=== PATIENT | male | born 1980 | race Hispanic/Latino ===

== ENCOUNTER 2025-05-04 17:11 | Emergency (ER) | payer BC ==
[2025-05-04] MEDS ORDERED: HYDROCODONE/APAP 5/325 MG TAB ONE (17:44)
[2025-05-04 19:23] LABS: Urine Microscopic Reflex YN NO UMIC
--- NOTE | 2025-05-04 20:43 | RAD REPORT ---
EXAMINATION: ULTRASOUND DUPLEX OF SCROTUM AND TESTICLES CLINICAL INDICATION: Male, 44 years, right testicle swelling and pain TECHNIQUE: Duplex scan of the scrotal contents was performed including real-time color and spectral D oppler ultrasonography with arterial inflow and venous outflow. COMPARISON: No prior exam. FINDINGS: RIGHT TESTICLE AND EPIDIDYMIS: The right testicle is normal in size, measuring 4.2 x 2.4 x 4.0 cm. Normal, homogeneous echotexture with no focal lesion seen. Multiple scattered microliths. The right epididymis is normal. Color Doppler flow in the right testicle shows mild relative hyperemia throughout the right testicula r parenchyma and epididymis. Normal arterial and venous spectral Doppler waveforms are identified. Small hydrocele. No varicocele. LEFT TESTICLE AND EPIDIDYMIS: The left testicle is normal in size, measuring 3.9 x 2.2 x 3.8 cm. Normal, homogeneous echotexture with no focal lesion seen. Multiple scattered microliths. The left epididymis is normal. Color Doppler flow in the left testicle is normal. Normal arterial and venous spectral Doppler waveforms are identified. No hydrocele. No varicocele. INGUINAL CANAL: No hernia. ADDITIONAL FINDINGS: None. IMPRESSION: Mild hyperemia throughout the right testicular parenchyma and epididymis, may suggest mild epididymoo rchitis. Small right hydrocele.
--- NOTE | 2025-05-04 21:15 | ER ---
Nurse's Notes [facility] Name: Pierce Bella Jr Age: 44 yrs Sex: Male : 1980 Arrival Date: 05/04/2025 Time: 17:11 Bed IW10 Private MD: Diagnosis: Epididymo-orchitis;Acute Right epididymoorchitis Presentation: 05/04 17:27 Chief complaint: Patient states: R TESTICLE PAIN AND SWELLING SINCE LUNCH, DENIES bp TRAUMA. Coronavirus screen: At this time, the client does not indicate any symptoms associated with coronavirus-19. Ebola Screen: No symptoms or risks identified at this time. Initial Sepsis Screen: Does the patient meet any 2 criteria? No. Patient's initial sepsis screen is negative. Does the patient have a suspected source of infection? No. Patient's initial sepsis screen is negative. Risk Assessment: Do you want to hurt yourself or someone else? Patient reports no desire to harm self or others. Onset of symptoms was May 04, 2025 at 13:00. 17:27 Method Of Arrival: Ambulatory bp 17:27 Acuity: [place] 3 bp Triage Assessment: 17:28 General: Appears in no apparent distress. uncomfortable, Behavior is calm, cooperative, bp appropriate for age. Pain: Complains of pain in groin. EENT: No deficits noted. Neuro: No deficits noted. Cardiovascular: No deficits noted. Respiratory: No deficits noted. GI: No signs and/or symptoms were reported involving the gastrointestinal system. : Reports pain testicle. Derm: No deficits noted. Musculoskeletal: No deficits noted. Historical: - Allergies: 17:28 No Known Allergies; bp - PMHx: 17:28 Hodgkin's Lymphoma; Hypertensive disorder; bp - Immunization history:: Adult Immunizations up to date. - Infectious Disease History:: Denies. - Social history:: Smoking status: Patient denies any tobacco usage or history of. Screenin:45 [facility] ED Fall Risk Assessment (Adult) History of falling in the last 3 months, jb4 including since admission No falls in past 3 months (0 pts) Confusion or Disorientation No (0 pts) Intoxicated or Sedated No (0 pts) Impaired Gait No (0 pts) Mobility Assist Device Used No (0 pt) Altered Elimination No (0 pt) Score/Fall Risk Level 0 - 2 = Low Risk Oriented to surroundings, Maintained a safe environment. Abuse screen: Denies threats or abuse. Nutritional screening: No deficits noted. Tuberculosis screening: No symptoms or risk factors identified. Assessment: 17:45 General: Appears in no apparent distress. uncomfortable, Behavior is calm, cooperative, jb4 appropriate for age. Pain: Complains of pain in groin Pain does not radiate. Pain currently is 7 out of 10 on a pain scale. Neuro: Level of Consciousness is awake, alert, obeys commands, Oriented to person, place, time, situation. Cardiovascular: Patient's skin is warm and dry. Respiratory: Airway is patent Respiratory effort is even, unlabored, Respiratory pattern is regular, symmetrical. Derm: Skin is intact, Skin is pink, warm \T\ dry. Musculoskeletal: Circulation, motion, and sensation intact. Range of motion: intact in all extremities. Vital Signs: 17:45 BP 142 / 69; Pulse 77; Resp 16; Temp 98.4(O); Pulse Ox 100% on R/A; Weight 92.99 kg; jb4 Height 5 ft. 4 in. ; 21:41 BP 136 / 71; Pulse 68; Resp 18; Temp 98.3(O); Pulse Ox 98% on R/A; Pain 5/10; kd4 17:45 Body Mass Index 35.19 (92.99 kg, 162.56 cm) jb4 21:41 Pain Scale: Adult kd4 [place] Coma Score: 21:41 Eye Response: spontaneous(4). Verbal Response: oriented(5). Motor Response: obeys kd4 commands(6). Total: 15. ED Course: 17:16 Patient arrived in ED. im 17:18 Anastacio Stone DO is Attending Physician. ms3 17:28 Triage completed. bp 17:28 Arm band placed on. bp 17:45 Patient has correct armband on for positive identification. Bed in low position. Call jb4 light in reach. Side rails up X 1. Provided Education on: plan of care. 17:45 No provider procedures requiring assistance completed. Patient did not have IV access jb4 during this emergency room visit. 18:19 Paco Amaya, RN is Primary Nurse. jb4 20:00 Attending Physician role handed off by Anastacio Stone DO sp4 20:00 Severiano Mendosa MD is Attending Physician. sp4 20:08 US Scrotum Testicles In Process Unspecified. EDMS 20:08 Abdomen Pelvis Scan\E\US In Process Unspecified. EDMS 21:13 Shantanu Kidd MD is Referral Physician. sp4 21:41 Pulse ox on. NIBP on. kd4 Administered Medications: 17:48 Drug: HYDROcodone-acetaminophen PO 5 mg-325 mg 1 tabs PO once Route: PO; jb4 19:28 Follow up: Response: No adverse reaction kd4 21:41 Follow up: Response: No adverse reaction kd4 Medication: 21:41 VIS not applicable for this client. kd4 Outcome: 21:15 Discharge ordered by MD. sp4 21:43 Condition: stable kd4 21:50 Discharged to home ambulatory, with family, bp 21:50 Discharge instructions given to patient, Instructed on discharge instructions, follow up and referral plans. medication usage, Demonstrated understanding of instructions, follow-up care, medications, Prescriptions given X 2, 22:09 Patient left the ED. bp Signatures: Dispatcher [employer] EDMS Paco Amaya, RN RN jb4 Paresh Stuart, RN RN bp Anastacio Stone DO DO ms3 Severiano Mendosa MD MD sp4 Alethea Macario Karim RN RN kd4
--- NOTE | 2025-05-04 21:15 | EDPHYS ---
Physician Documentation [facility] Name: Pierce Bella Jr Age: 44 yrs Sex: Male : 1980 Arrival Date: 05/04/2025 Time: 17:11 Bed IW10 Private MD: ED Physician Severiano Mendosa HPI: 05/04 17:28 This 44 yrs old Male presents to ER via Unassigned with complaints of ms3 Testicular Swelling - right. 17:28 44-year-old male with past medical history of hypertension, hyperlipidemia, ms3 hypothyroidism presents to the emergency department for right testicular pain that began after lunch at 12 PM. Patient states his right testicle is swollen and painful with tenderness to palpation. Patient states discomfort is an 8/10. Patient states pain is worse with walking or sitting.. Historical: - Allergies: 17:28 No Known Allergies; bp - PMHx: 17:28 Hodgkin's Lymphoma; Hypertensive disorder; bp - Immunization history:: Adult Immunizations up to date. - Infectious Disease History:: Denies. - Social history:: Smoking status: Patient denies any tobacco usage or history of. ROS: 18:42 Constitutional: Negative for fever, and chills. Cardiovascular: Negative for chest ms3 pain, and palpitations. Respiratory: Negative for shortness of breath, cough, wheezing, and pleuritic chest pain, Abdomen/GI: Negative for abdominal pain, nausea, vomiting, diarrhea, and constipation, MS/Extremity: Negative for injury and deformity, Skin: Negative for injury, rash, and discoloration, 18:42 : Positive for testicular pain Exam: 18:42 Constitutional: This is a well developed, well nourished patient who is awake, alert, ms3 and in no acute distress. Cardiovascular: Regular rate and rhythm with a normal S1 and S2. No gallops, murmurs, or rubs. Normal PMI, no JVD. No pulse deficits. Respiratory: Lungs have equal breath sounds bilaterally, clear to auscultation and percussion. No rales, rhonchi or wheezes noted. No increased work of breathing, no retractions or nasal flaring. Abdomen/GI: Soft, non-tender, with normal bowel sounds. No distension or tympany. No guarding or rebound. No evidence of tenderness throughout. Skin: Warm, dry with normal turgor. Normal color with no rashes, no lesions, and no evidence of cellulitis. MS/ Extremity: Pulses equal, no cyanosis. Neurovascular intact. Full, normal range of motion. 18:42 : Male external genitalia: swelling, of the right testicle is noted, that is moderate, tenderness, of the right testicle is noted, of the epididymis area, that is moderate, Cremasteric reflex intact bilaterally, Vital Signs: 17:45 BP 142 / 69; Pulse 77; Resp 16; Temp 98.4(O); Pulse Ox 100% on R/A; Weight 92.99 kg; jb4 Height 5 ft. 4 in. ; 21:41 BP 136 / 71; Pulse 68; Resp 18; Temp 98.3(O); Pulse Ox 98% on R/A; Pain 5/10; kd4 17:45 Body Mass Index 35.19 (92.99 kg, 162.56 cm) jb4 21:41 Pain Scale: Adult kd4 [place] Coma Score: 21:41 Eye Response: spontaneous(4). Verbal Response: oriented(5). Motor Response: obeys kd4 commands(6). Total: 15. MDM: 17:27 Medical Screening Exam initiated ms3 18:45 Differential diagnosis: nonspecific abdominal pain, UTI, Epididymitis versus testicular ms3 torsion. 21:13 Data reviewed: vital signs, nurses notes, lab test result(s), urinalysis, radiologic sp4 studies, ultrasound. ED course: TECHNIQUE: Duplex scan of the scrotal contents was performed including real-time color and spectral Doppler ultrasonography with arterial inflow and venous outflow. COMPARISON: No prior exam. FINDINGS: RIGHT TESTICLE AND EPIDIDYMIS: The right testicle is normal in size, measuring 4.2 x 2.4 x 4.0 cm. Normal, homogeneous echotexture with no focal lesion seen. Multiple scattered microliths. The right epididymis is normal. Color Doppler flow in the right testicle shows mild relative hyperemia throughout the right testicular parenchyma and epididymis. Normal arterial and venous spectral Doppler waveforms are identified. Small hydrocele. No varicocele. LEFT TESTICLE AND EPIDIDYMIS: The left testicle is normal in size, measuring 3.9 x 2.2 x 3.8 cm. Normal, homogeneous echotexture with no focal lesion seen. Multiple scattered microliths. The left epididymis is normal. Color Doppler flow in the left testicle is normal. Normal arterial and venous spectral Doppler waveforms are identified. No hydrocele. No varicocele. INGUINAL CANAL: No hernia. ADDITIONAL FINDINGS: None. IMPRESSION: Mild hyperemia throughout the right testicular parenchyma and epididymis, may suggest mild epididymoorchitis. Small right hydrocele. . 05/04 17:27 Order name: UA Rfx John Cult if indicated; Complete Time: 20:01 ms3 05/04 17:27 Order name: US Scrotum Testicles; Complete Time: 21:05 ms3 05/04 20:08 Order name: Abdomen Pelvis Scan\E\US EDMS Administered Medications: 17:48 Drug: HYDROcodone-acetaminophen PO 5 mg-325 mg 1 tabs PO once Route: PO; jb4 19:28 Follow up: Response: No adverse reaction kd4 21:41 Follow up: Response: No adverse reaction kd4 Disposition: 21:21 Chart complete. sp4 Disposition Summary: 05/04/25 21:15 Discharge Ordered Notes: Location: Home sp4 Problem: new sp4 Symptoms: have improved sp4 Condition: Stable sp4 Diagnosis - Epididymo-orchitis sp4 - Acute Right epididymoorchitis sp4 Followup: sp4 - With: Shantanu Kidd MD - When: 7 - 10 days - Reason: Recheck today's complaints Discharge Instructions: - Discharge Summary Sheet sp4 - Orchitis sp4 Forms: - Patient Portal Instructions sp4 Prescriptions: - ketorolac 10 mg Oral tablet - take 1 tablet ORAL route every 8 hours PRN pain; 30 tablet; Refills: 0, Product sp4 Selection Permitted - Tramadol 50 mg Oral Tablet - take 1 tablet ORAL route every 8 hours as needed; 12 tablet; Refills: 0, sp4 Product Selection Permitted Signatures: Dispatcher [employer] EDMS Paco Amaya RN RN jb4 Paresh Stuart RN RN bp Sims, Marcus, DO DO ms3 Severiano Mendosa MD MD sp4 Pablo Elias RN kd4 Corrections: (The following items were deleted from the chart) 18:43 17:28 44-year-old male with past medical history of hypertension, hyperlipidemia, ms3 hypothyroidism presents to the emergency department. ms3
[2025-05-04 22:23] VITALS: BP 136/71; TEMP 98.3; O2SAT 98
== END 2025-05-04 22:09 | disposition home or self-care (01) ==
LOC: ER 17:11
DX: N45.3 Epididymo-orchitis (principal)
CPT/HCPCS: 76870; 81003; 93975; 99284